=== PATIENT | male | born 1990 | race Caucasian/White ===

== ENCOUNTER 2025-03-31 00:27 | Inpatient (IN) | payer SELFPAY ==
[~2025-03-31] VITALS: Ht 205.7 cm; Wt 86.8 kg
[2025-03-31] MEDS: LORAZEPAM 2MG/ML UD SYRINGE IM NR (00:55)
[2025-03-31] MEDS: HALOPERIDOL LACTATE 5MG/ML VIAL IM ONE (00:55)
[2025-03-31] MEDS: SODIUM CHLORIDE 0.9% 1,000 ML IV ONE (01:29)
[2025-03-31 01:45] VITALS: O2SAT 97
[2025-03-31 01:50] LABS: BASOPHILS % 1.3 % (0.0-2.0); EOSINOPHILS % 1.3 % (0.0-5.0); HEMATOCRIT. 41.7 % (42.0-52.0); HEMOGLOBIN. 14.0 g/dL (14.0-18.0); LYMPHOCYTES % 34.5 % (20.0-50.0); MEAN PLATELET VOLUME 10.4 fl (7.4-10.4); MONOCYTES % 6.5 % (2.0-8.0); NEUTROPHILS % 56.4 % (40.0-76.0); PLATELET 256 x1000/uL (130-400); RED BLOOD CELL COUNT 4.85 mill/uL (4.7-6.1); RED CELL DISTRIBUTION WIDTH 14.3 % (11.6-14.6)
[2025-03-31 02:00] LABS: CREATININE 1.0 mg/dL (0.6-1.3); UREA NITROGEN BLOOD 6 mg/dL (9-23)
[2025-03-31 02:02] LABS: ASPARTATE AMINOTRANSFERASE 40 IU/L (<34); BILIRUBIN DIRECT 0.1 mg/dL (<=3.0); BILIRUBIN TOTAL 0.4 mg/dL (0.1-1.0); PROTEIN TOTAL 7.5 g/dL (6.0-8.3)
[2025-03-31 02:23] LABS: ETHANOL BLOOD 367 mg/dL (<10)
[2025-03-31] MEDS: KCL 20MEQ/100ML PREMIX 100 ML IV ONE (02:41)
[2025-03-31] MEDS: POTASSIUM CHLORIDE 20MEQ/PACKET PO ONE (03:00)
[2025-03-31] MEDS ORDERED: IPRATROPIUM/ALBUTEROL 0.5-3(2.5)MG/3ML NEB HHN PRN (04:30)
[2025-03-31] MEDS ORDERED: MAGNESIUM/ALUMINUM HYDROXIDE/SIMETHICONE 30ML UDC PO PRN (04:30)
[2025-03-31] MEDS ORDERED: LORAZEPAM 2MG/ML UD SYRINGE IV PRN ×2 (04:30)
[2025-03-31] MEDS ORDERED: CLONIDINE 0.1MG TABLET PO PRN (04:30)
[2025-03-31] MEDS ORDERED: DOCUSATE SODIUM 100MG CAPSULE PO PRN (04:30)
[2025-03-31] MEDS ORDERED: ONDANSETRON HCL 4MG/2ML INJ IV PRN (04:30)
[2025-03-31] MEDS ORDERED: ACETAMINOPHEN 325MG TABLET PO PRN ×2 (04:30)
[2025-03-31] MEDS ORDERED: GUAIFENESIN 200MG/10ML SUGAR FREE UDC PO PRN (04:30)
[2025-03-31] MEDS: [UNRECOGNIZED DRUG - REMARK] IV SCH (05:56)
[2025-03-31 08:00] VITALS: BP 160/92; PULSE 90; RESP 16; TEMP 36.7; O2SAT 98
[2025-03-31] MEDS: LACTATED RINGERS 1,000 ML IV NR (08:08)
[2025-03-31 09:00] VITALS: BP 160/92; PULSE 90; RESP 16; TEMP 36.7516
[2025-03-31] MEDS: THIAMINE HCL 100MG TABLET PO SCH (10:07)
[2025-03-31] MEDS: PANTOPRAZOLE SODIUM 40 MG/VIAL IV SCH (10:07)
[2025-03-31] MEDS: FOLIC ACID 1MG TABLET PO SCH (10:12)
[2025-03-31] MEDS: DEXT 5%/LACTATED RINGERS 1,000 ML IV SCH (10:13)
[2025-03-31 12:00] VITALS: BP 130/78; PULSE 71; RESP 16; TEMP 36.8; O2SAT 97
[2025-03-31 16:00] VITALS: BP 120/82; PULSE 79; RESP 16; TEMP 37.4; O2SAT 95
[2025-03-31] MEDS ORDERED: INFLUENZA VACCINE 05/PF 0.5 ML SYRINGE IM ONE (16:45)
[2025-03-31 20:00] VITALS: BP 157/68; PULSE 67; RESP 18; TEMP 36.8; O2SAT 98
[2025-04-01] VITALS: BP 134/53; PULSE 54; RESP 18; TEMP 36.6
[2025-04-01 04:00] VITALS: BP 135/73; PULSE 52; RESP 18; TEMP 36.7
[2025-04-01 07:45] LABS: T4 FREE 1.42 ng/dL (0.89-1.76)
[2025-04-01 07:49] LABS: CREATININE 1.0 mg/dL (0.6-1.3); TRIGLYCERIDE 217 mg/dL (0-150); UREA NITROGEN BLOOD 8 mg/dL (9-23)
[2025-04-01 07:50] LABS: LDL CHOLESTEROL 128 mg/dL (5-100)
[2025-04-01 08:00] VITALS: BP 132/81; PULSE 54; RESP 16; TEMP 36.7; O2SAT 97
[2025-04-01 12:00] VITALS: BP 127/61; PULSE 52; RESP 16; TEMP 36.7; O2SAT 98
[2025-04-01 13:03] VITALS: BP 127/61; PULSE 52; RESP 16; TEMP 98.1
== END 2025-04-01 13:34 | disposition home or self-care (01) | DRG 52 ==
LOC: ER 00:27 → EDBD 03:08 → 5WST 03:08 → EDBEDREQ 03:13 → EDBEDREQSVC 03:13 → EDBEDREQTM 03:13 → ENRESERV 07:15
PROVIDERS: ADMIT Hospitalist; ATTEND Hospitalist
DX: G92.8 Other toxic encephalopathy (principal); E78.5 Hyperlipidemia, unspecified; E87.6 Hypokalemia; F10.129 Alcohol abuse with intoxication, unspecified
CPT/HCPCS: 36415; 80048; 80061; 80076; 80320; 82140; 82550; 83735; 84439; 84443; 85025; 96372; 99285; J1630; J2060; J2470; J3411; J3480; J3490; J7030; J7070; J7121; G0480